=== PATIENT | female | born 1960 | race Caucasian/White ===

== ENCOUNTER → 2017-01-30 | Outpatient (CLI) | payer OTHER ==
--- NOTE | 2017-01-30 16:58 | KCIC ---
PROCEDURE Bilateral digital mammogram with CAD HISTORY Routine screening TECHNIQUE Bilateral digital routine views were obtained with computer-aided detection. COMPARISON May 11, 2012 FINDINGS Density B: Mixed fatty and fibroglandular tissue. There is no suspicious mass, calcifications or areas of architectural distortion. IMPRESSION No suspicious findings. [Recommend routine screening mammography in one year.] This study was interpreted with the benefit of Computerized Aided Detection (CAD). Mammography is not 100% sensitive in detecting breast cancer. Therefore, a self breast exam and a clinical breast exam are very important. A negative mammogram does not negate a clinically suspicious finding and should not result in a delay in biopsying a clinically suspicious abnormality. BI-RADS category 1: Negative. Electronically signed by: Vlad Hill MD (Jan 30, 2017 16:57:48)
== END | disposition home or self-care (01) ==
LOC: KCIC MAMMO 15:12
PROVIDERS: ATTEND Family Medicine
DX: Z12.31 Encounter for screening mammogram for malignant neoplasm of breast (principal)
CPT/HCPCS: G0202; 77067

== ENCOUNTER → 2018-04-16 | Outpatient (CLI) | payer BC | END | disposition home or self-care (01) | LOC: KCIC MRI 12:15 | DX: S76.312D Strain of muscle, fascia and tendon of the posterior muscle group at thigh level, left thigh, subsequent encounter (principal); X58.XXXD Exposure to other specified factors, subsequent encounter | CPT/HCPCS: 73718 ==